=== PATIENT | female | born 1965 | race Caucasian/White ===

== ENCOUNTER 2018-01-06 18:22 | Emergency (ER) | payer OTHER, SELFPAY ==
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
== END 2018-01-06 19:45 | disposition home or self-care (01) ==
LOC: ERS 18:22
DX: S80.212A Abrasion, left knee, initial encounter (principal); S60.416A Abrasion of right little finger, initial encounter; V89.2XXA Person injured in unspecified motor-vehicle accident, traffic, initial encounter

== ENCOUNTER 2019-10-06 11:50 | Inpatient (IN) | payer BC ==
--- NOTE | 2019-10-06 12:15 | RAD ---
PORTABLE CHEST 1 VIEW: Date: 10/06/2019 Time: 1210 hours HISTORY: Chest pain. COMPARISON: 02/14/2018. FINDINGS: Left-sided pacemaker is present. The heart size is normal. The lungs are well expanded without lobar consolidation, pneumothoraces, or pleural effusions. IMPRESSION: No acute process. POS: KARRI
[2019-10-06 12:27] LABS: #Basophils 0.1 thou/uL (0.0-0.2); #Eosinphils 0.3 thou/uL (0.0-0.7); #Lymphocytes 2.3 thou/uL (1.20-3.40); #Monocytes 0.5 thou/uL (0.11-0.59); #Neutrophils 5.4 thou/uL (1.40-6.50); %Basophils 0.9 % (0.0-1.0); %Eosinophils 3.6 % (0.0-10.0); %Lymphocytes 26.4 % (21.0-51.0); %Monocytes 6.4 % (0.0-10.0); %Neutrophils 62.7 % (42.0-75.0); Hemoglobin 14.5 g/dL (12.0-16.0); Mean Corpuscular HGB CONC 34.5 g/dL (32.0-36.0); Mean Corpuscular Hemoglobin 32.2 pg (27.0-31.0); Mean Corpuscular Volume 93.3 fL (78.0-98.0); Mean Platelet Volume 8.2 fL (7.4-10.4); Platelet Count 220 thou/uL (130-400); RBC Distribution Width 12.3 % (11.5-14.5); Red Blood Cell (RBC) Count 4.52 mill/uL (4.20-5.40); White Blood Cell (WBC) Count 8.5 thou/uL (4.8-10.8)
[2019-10-06 12:53] LABS: ALT (SGPT) 20 U/L (8-55); AST (SGOT) 24 U/L (5-34); Albumin 4.8 g/dL (3.5-5.0); Alkaline Phosphatase 103 U/L (40-110); Anion Gap 14 mmol/L (10-20); BUN (Urea Nitrogen) 19 mg/dL (9.8-20.1); Bilirubin, Total 1.6 mg/dL (0.2-1.2); CK (CPK) 33 U/L (29-168); Calc. Creatinine Clearance 0 mL/min (70-130); Calcium 10.9 mg/dL (7.8-10.44); Carbon Dioxide 27 mmol/L (22-29); Chloride 104 mmol/L (98-107); Estimated GFR-MDRD 60; Globulin 3.3 g/dL (2.4-3.5); Glucose 126 mg/dL (70-105); Potassium 4.6 mmol/L (3.5-5.1); Protein, Total 8.1 g/dL (6.0-8.3); Sodium 140 mmol/L (136-145)
[2019-10-06 18:24] LABS: Troponin I Less than 0.010 ng/mL (< 0.028)
[2019-10-06] MEDS ORDERED: Acetaminophen 325 MG TAB PO PRN (19:19)
[2019-10-06] MEDS ORDERED: hydrALAZINE 20 MG/ML VIAL SLOW IVP PRN (19:19)
[2019-10-06] MEDS ORDERED: Ondansetron ODT 4 MG TAB PO PRN (19:19)
[2019-10-06] MEDS ORDERED: Ondansetron PF 4 MG/2 ML Vial IVP PRN (19:19)
[2019-10-06] MEDS ORDERED: hydrALAZINE 25 MG TAB PO PRN (19:19)
--- NOTE | 2019-10-06 22:20 | HP ---
PRIMARY CARE PHYSICIAN: Ray Hurt MD CHIEF COMPLAINT: I feel a weird sensation in my chest. HISTORY OF PRESENT ILLNESS: Ms. 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 She says that she has a defibrillator in place and she recently had a repair of a lead fracture. She was doing okay and then had a followup appointment and says that prior to that her defibrillator has an alarm. It was making some strange sound. She says that the alarm was warning them that there could be some type of problem with one of the leads and she made an appointment for this coming Tuesday in response to that. However, this morning she says that she started feeling a rhythmic sensation in her chest that she really could not describe. She thought it might have been palpitations and it did not necessarily hurt, but every time it happened, it would take her breath away and for this reason, she decided to come to the ER for evaluation. When she was evaluated in the ER, they called [employer] and said that she was actually receiving "shocks" and was instructed that they may have to potentially turn the defibrillator off in order to keep it from shocking her and she is being admitted for further evaluation. Otherwise, she denies any other symptoms such as nausea or vomiting. No fevers. No chills. No cough. No congestion. No abdominal pain. No leg pain. No leg swelling. REVIEW OF SYSTEMS: All systems are reviewed and are negative except for that mentioned in the history of present illness. PAST MEDICAL HISTORY: Significant for viral cardiomyopathy, hypertension, obesity, and hyperlipidemia. PAST SURGICAL HISTORY: She has had a tonsillectomy, cholecystectomy. She has had a defibrillator placed, then has had a generator change and then she has had 2 lead revisions, the most recent being about 3 weeks ago. ALLERGIES: TO PREDNISONE. SOCIAL HISTORY: She is a nonsmoker and nondrinker. She is , has one child. 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 FAMILY HISTORY: History of coronary artery disease. MEDICATIONS: Include: 1. [place]-3 acids 2000 mg daily. 2. Loratadine 10 mg daily. 3. Biotin 1000 mcg p.o. daily. 4. Multivitamin one a day. 5. Potassium 99 mg daily. 6. Melatonin 10 mg daily. 7. Levocetirizine 5 mg daily. 8. Entresto 49/51 mg one tablet twice daily. 9. Crestor 10 mg daily. 10. Carvedilol 12.5 mg in the a.m. and 25 mg q.p.m. PHYSICAL EXAMINATION: GENERAL: She is alert and oriented. She appears to be in no acute distress. She is well developed and well nourished. VITAL SIGNS: Blood pressure was about 118/80, heart rate in the 70s, respiratory rate of 16. She is afebrile. HEENT: Pupils are equal, round, and reactive. Extraocular muscles are intact. Her sclerae are anicteric. NECK: There is no adenopathy. No bruits. LUNGS: Clear. There is no wheezing. No rales. No rhonchi. CARDIOVASCULAR: She has a normal S1 and S2. I did not appreciate an S3 or S4. No murmurs, clicks, or rubs. ABDOMEN: Obese, soft, nontender, and nondistended. Positive for bowel sounds. No rebound. No guarding. No organomegaly. EXTREMITIES: There is no clubbing or cyanosis. No edema. No calf tenderness. No joint effusions. NEUROLOGIC: Grossly nonfocal. SKIN AND INTEGUMENT: No skin changes. No rash. LABORATORY RESULTS: White blood cell count is 8.5, hemoglobin 14.5, hematocrit is 42.1, and platelet count is 220. Sodium 140, potassium 4.6, chloride is 106, CO2 is 27, BUN of 19, creatinine 0.98, glucose is 126, calcium 10.9, total bilirubin 1.6. On her EKG, it was sinus rhythm. There was some Q waves in II, III and aVF as well as poor R wave progression between V1 and V4 and that EKG is by my reading. Her chest x-ray by my reading shows some cardiomegaly, increased pulmonary vascular markings in my opinion. ASSESSMENT: This is a pleasant 54-year-old female, who is being admitted for defibrillator malfunction. She will be placed in observation on telemetry. The defibrillator has been disabled with the magnet. We will monitor her on telemetry and consult EP with Dr. Lipscomb for evaluation. She may need lead revision once again. 1. Hypertension. We will continue her usual medications. 2. Chronic systolic heart failure. This appears to be clinically compensated. Again restart home medicines. Job ID: [id number]
[2019-10-07 04:27] LABS: #Basophils 0.1 thou/uL (0.0-0.2); #Eosinphils 0.3 thou/uL (0.0-0.7); #Lymphocytes 2.5 thou/uL (1.20-3.40); #Monocytes 0.8 thou/uL (0.11-0.59); #Neutrophils 5.7 thou/uL (1.40-6.50); %Basophils 1.2 % (0.0-1.0); %Eosinophils 3.3 % (0.0-10.0); %Lymphocytes 26.5 % (21.0-51.0); %Monocytes 8.7 % (0.0-10.0); %Neutrophils 60.3 % (42.0-75.0); Hemoglobin 14.3 g/dL (12.0-16.0); Mean Corpuscular HGB CONC 35.8 g/dL (32.0-36.0); Mean Corpuscular Hemoglobin 33.6 pg (27.0-31.0); Mean Corpuscular Volume 93.9 fL (78.0-98.0); Platelet Count 184 thou/uL (130-400); RBC Distribution Width 12.3 % (11.5-14.5); Red Blood Cell (RBC) Count 4.25 mill/uL (4.20-5.40); White Blood Cell (WBC) Count 9.4 thou/uL (4.8-10.8)
[2019-10-07 04:51] LABS: Anion Gap 14 mmol/L (10-20); BUN (Urea Nitrogen) 17 mg/dL (9.8-20.1); Calc. Creatinine Clearance 136 mL/min (70-130); Calcium 10.1 mg/dL (7.8-10.44); Carbon Dioxide 25 mmol/L (22-29); Chloride 105 mmol/L (98-107); Estimated GFR-MDRD 61; Glucose 114 mg/dL (70-105); Potassium 4.2 mmol/L (3.5-5.1); Sodium 140 mmol/L (136-145)
[2019-10-07] MEDS: Fish Oil 1,000 MG CAP PO SCH (08:56)
[2019-10-07] MEDS: Multivitamin W/ Minerals 1 TAB PO SCH (08:57)
[2019-10-07] MEDS: Carvedilol 6.25 MG TAB PO SCH (08:57)
[2019-10-07] MEDS: Rosuvastatin 10 MG TAB PO SCH (08:57)
[2019-10-07] MEDS: Sacubitril 49 MG/Valsartan 51 MG TABLET PO SCH ×2 (08:57→20:57)
[2019-10-07] MEDS ORDERED: BOR PO SCH (09:00)
[2019-10-07] MEDS ORDERED: COLLAGEN PO SCH (09:00)
[2019-10-07] MEDS ORDERED: CARTILAGE PO SCH (09:00)
[2019-10-07] MEDS ORDERED: Non-Formulary Item 1 EACH (Biotin [Biotin] 10,000 MCG) PO SCH (09:00)
[2019-10-07] MEDS ORDERED: HYALUR PO SCH (09:00)
[2019-10-07] MEDS ORDERED: Loratadine 10 MG TAB PO SCH ×2 (09:00)
[2019-10-07] MEDS: Enoxaparin Sodium 40 MG/0.4 ML SYRINGE SC SCH (09:01)
--- NOTE | 2019-10-07 17:27 | PDOC.HOSPP ---
- Subjective Encounter Date: 10/07/19 Encounter Time: 17:25 Subjective: Ms. Finney was seen today in follow-up of defibrillator lead fracture. She does not have any complaints today. - Objective Vital Signs & Weight: Vital Signs (12 hours) Temp Pulse Resp BP BP Pulse Ox 10/07/19 16:57 98.2 F 72 15 121/71 96 10/07/19 11:13 97.9 F 82 14 110/70 94 L 10/07/19 08:57 121/71 10/07/19 06:54 98.2 F 80 14 121/71 94 L Weight Weight 278 lb 1 oz I&O: 10/06/19 10/07/19 10/08/19 06:59 06:59 06:59 Intake Total 1020 Balance 1020 Result Diagrams: 10/07/19 03:55 10/07/19 03:55 Hospitalist ROS - Medication Medications: Active Medications Generic Name Dose Route Start Last Admin Trade Name Freq PRN Reason Stop Dose Admin Carvedilol 12.5 mg 10/07/19 09:00 10/07/19 08:57 Coreg PO 12.5 mg DAILY SANJAY Administration Enoxaparin Sodium 40 mg 10/07/19 09:00 10/07/19 09:01 Lovenox SC 40 mg 0900 SANJAY Administration Fish Oil 2,000 mg 10/07/19 09:00 10/07/19 08:56 Fish Oil PO 2,000 mg DAILY SANJAY Administration Iron/Minerals/Multivitamins 1 tab 10/07/19 09:00 10/07/19 08:57 Theragran M PO 1 tab DAILY SANJAY Administration Rosuvastatin Calcium 10 mg 10/07/19 09:00 10/07/19 08:57 Crestor PO 10 mg DAILY SANJAY Administration Sacubitril/Valsartan 1 tab 10/07/19 09:00 10/07/19 08:57 Entresto 49 Mg-51 Mg Tablet PO 1 tab BID SANJAY Administration - Exam Eye: PERRL, anicteric sclera Heart: RRR, no murmur, no gallops, no rubs, normal peripheral pulses Respiratory: CTAB, no wheezes, no rales, no ronchi, normal chest expansion Gastrointestinal: soft, non-tender, non-distended, normal bowel sounds, no palpable masses, no hepatomegaly Extremities: no cyanosis, no edema Hosp A/P (1) Implanted defibrillator electrode lead fracture Code(s): T82.190A - [facility] COMPL OF CARDIAC ELECTRODE, INITIAL ENCOUNTER Status : Acute (2) Cardiomyopathy, nonischemic Code(s): I42.8 - OTHER CARDIOMYOPATHIES Status: Chronic (3) Hypertension Code(s): I10 - ESSENTIAL (PRIMARY) HYPERTENSION Status: Chronic (4) Morbid obesity with BMI of 45.0-49.9, adult Code(s): E66.01 - MORBID (SEVERE) OBESITY DUE TO EXCESS CALORIES; Z68.42 - BODY MASS INDEX (BMI) 45.0-49.9, ADULT Status: Chronic - Plan * Defibrillator lead fracture- Await EP evaluation * HTN- blood pressure is stable- reconcile, and re-start home medications * CHF- chronic systolic heart failure due to non-ischemic cardiomyopathy- compensated
[2019-10-07] MEDS: Carvedilol 25 MG TAB PO SCH (20:57)
[2019-10-07] MEDS: Melatonin 3 MG TAB PO SCH (20:57)
[2019-10-07] MEDS ORDERED: Non-Formulary Item 1 EACH (Carvedilol [Coreg] 12.5 MG) PO SCH (21:00)
[2019-10-08] MEDS: Enoxaparin Sodium 40 MG/0.4 ML SYRINGE SC SCH (08:35)
[2019-10-08] MEDS: Loratadine 10 MG TAB PO SCH (08:36)
[2019-10-08] MEDS: Fish Oil 1,000 MG CAP PO SCH (08:36)
[2019-10-08] MEDS: Carvedilol 6.25 MG TAB PO SCH (08:36)
[2019-10-08] MEDS: Sacubitril 49 MG/Valsartan 51 MG TABLET PO SCH ×2 (08:36→20:40)
[2019-10-08] MEDS: Rosuvastatin 10 MG TAB PO SCH (08:36)
[2019-10-08] MEDS: Multivitamin W/ Minerals 1 TAB PO SCH (08:36)
--- NOTE | 2019-10-08 10:54 | PDOC.HOSPP ---
- Subjective Encounter Date: 10/08/19 Encounter Time: 10:53 Subjective: Ms. Finney was seen today in follow-up of defibrillator lead fracture. She noted that after she got up and moved around some yesterday evening, she began to notice the sensation in her chest again. - Objective Vital Signs & Weight: Vital Signs (12 hours) Temp Pulse Resp BP Pulse Ox 10/08/19 07:20 97.6 F 76 17 119/71 94 L 10/08/19 03:19 97.7 F 67 16 105/61 94 L 10/08/19 00:34 96 10/08/19 00:10 70 Weight Weight 280 lb 14.4 oz I&O: 10/07/19 10/08/19 10/09/19 06:59 06:59 06:59 Intake Total 1020 2120 Output Total 3025 Balance 1020 -905 Result Diagrams: 10/07/19 03:55 10/07/19 03:55 Hospitalist ROS - Medication Medications: Active Medications Generic Name Dose Route Start Last Admin Trade Name Cali PRN Reason Stop Dose Admin Carvedilol 25 mg 10/07/19 21:00 10/07/19 20:57 Coreg PO 25 mg HS SANJAY Administration Carvedilol 12.5 mg 10/07/19 09:00 10/08/19 08:36 Coreg PO 12.5 mg DAILY SANJAY Administration Enoxaparin Sodium 40 mg 10/07/19 09:00 10/08/19 08:35 Lovenox SC Not Given 0900 SANJAY Fish Oil 2,000 mg 10/07/19 09:00 10/08/19 08:36 Fish Oil PO 2,000 mg DAILY SANJAY Administration Iron/Minerals/Multivitamins 1 tab 10/07/19 09:00 10/08/19 08:36 Theragran M PO 1 tab DAILY SANJAY Administration Loratadine 10 mg 10/08/19 09:00 10/08/19 08:36 Claritin PO 10 mg DAILY SANJAY Administration Melatonin 9 mg 10/07/19 21:00 10/07/19 20:57 Melatonin PO 9 mg HS SANJAY Administration Rosuvastatin Calcium 10 mg 10/07/19 09:00 10/08/19 08:36 Crestor PO 10 mg DAILY SANJAY Administration Sacubitril/Valsartan 1 tab 10/07/19 09:00 10/08/19 08:36 Entresto 49 Mg-51 Mg Tablet PO 1 tab BID SANJAY Administration - Exam Eye: PERRL Heart: RRR, no murmur, no gallops, no rubs, normal peripheral pulses Respiratory: CTAB, no wheezes Gastrointestinal: soft, non-tender, non-distended, normal bowel sounds, no palpable masses, no hepatomegaly Extremities: no cyanosis, no edema Hosp A/P (1) Implanted defibrillator electrode lead fracture Code(s): T82.190A - [facility] COMPL OF CARDIAC ELECTRODE, INITIAL ENCOUNTER Status : Acute (2) Cardiomyopathy, nonischemic Code(s): I42.8 - OTHER CARDIOMYOPATHIES Status: Chronic (3) Hypertension Code(s): I10 - ESSENTIAL (PRIMARY) HYPERTENSION Status: Chronic (4) Morbid obesity with BMI of 45.0-49.9, adult Code(s): E66.01 - MORBID (SEVERE) OBESITY DUE TO EXCESS CALORIES; Z68.42 - BODY MASS INDEX (BMI) 45.0-49.9, ADULT Status: Chronic - Plan * Defibrillator lead fracture-EP evaluation in progress * HTN- blood pressure is stable- reconcile, and re-start home medications * CHF- chronic systolic heart failure due to non-ischemic cardiomyopathy- compensated
[2019-10-08 13:37] VITALS: BMI 46.7
[2019-10-08] MEDS ORDERED: Iopamidol 370 76% 50 ML VIAL FS ONE (13:37)
[2019-10-08] MEDS ORDERED: CEFAZOLIN 1 GM VIAL ONE (15:04)
[2019-10-08] MEDS ORDERED: Gentamicin 80 MG/2 ML VIAL ONE (15:04)
[2019-10-08] MEDS ORDERED: Midazolam HCl 2 mg/2 ml Vial ONE (15:05)
[2019-10-08] MEDS ORDERED: Ketamine 50 MG/ML (10ML VIAL) ONE (15:05)
[2019-10-08] MEDS ORDERED: Propofol 500 MG/50 ML VIAL ONE ×2 (15:05→16:29)
[2019-10-08] MEDS ORDERED: Fentanyl 100 MCG/2 ML VIAL ONE ×2 (15:05→17:34)
[2019-10-08] MEDS ORDERED: Phenylephrine 10 MG/ML VIAL ONE (15:41)
[2019-10-08] MEDS ORDERED: Ondansetron HCl/PF 4 MG/2 ML Vial IVP PRN (16:47)
[2019-10-08] MEDS ORDERED: Promethazine HCl 25 MG/ML VIAL SLOW IVP PRN (16:47)
[2019-10-08] MEDS ORDERED: Promethazine HCl 25 MG/ML VIAL IM PRN (16:47)
[2019-10-08] MEDS ORDERED: PACU-Morphine 4MG/ML VIAL SLOW IVP PRN (16:47)
[2019-10-08] MEDS ORDERED: HYDROmorphone 2 MG/ML VIAL SLOW IVP PRN (16:47)
[2019-10-08] MEDS ORDERED: traMADol HCl 50 MG TAB PO PRN (20:18)
[2019-10-08] MEDS: Carvedilol 25 MG TAB PO SCH (20:40)
[2019-10-08] MEDS: Melatonin 3 MG TAB PO SCH (20:40)
[2019-10-08] MEDS: CEFAZOLIN 2 GM in Premix Bag 1 BAG IVPB SCH (23:27)
--- NOTE | 2019-10-09 07:05 | CON ---
DATE OF CONSULTATION: 10/08/2019 ADDITIONAL REFERRING PHYSICIAN: Bryan Hebert MD. 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 Her problems are: 1. RA and RV lead malfunction likely retraction. 2. History of chronic systolic congestive heart failure with nonischemic cardiomyopathy. a. LVEF on 11/16/2018 reveals LVEF 45% to 50%. b. Dual-chamber ICD in place, urgent implantation in 2012 with subsequent lead revision. Atrial lead malfunction noted over the years and due to suboptimal defibrillation thresholds and poor atrial sensing, she underwent a lead extraction and device reimplantation by Dr. Chatterjee in August 2019. 3. Now presenting with retracted atrial leads of the freshly implanted device. 4. Morbid obesity. 5. Hypertension. 6. Dyslipidemia. ALLERGIES: NONE. MEDICATIONS: At home included: 1. Melatonin. 2. Multivitamin. 3. Claritin. 4. [place]-3 fatty acid. 5. Biotin. 6. Tylenol. 7. Xyzal 2.5 tablet. 8. Coreg 25 mg p.o. q.a.m. and 12.5 mg p.o. q.p.m. 9. Entresto 49/51 mg one tablet twice a day. 10. Crestor. SUBJECTIVE: Mrs. Finney has been experiencing hiccup like sensations overnight, came to the ER, and she was found to have her ICD lead malfunction. Chest x-ray revealing retracted atrial and somewhat retracted ventricular lead. She already has had signs of RV lead malfunction over her [employer] remote monitoring transmission, and was warned about potential issues. Likely, she had not had any mis-sensing of ventricular signals, and no inappropriate shocks were delivered. She also has no appropriate ventricular tachycardia recently. Respiratory system otherwise unremarkable with no current angina, CHF. No fever, chills. No wound healing issues from recent ICD revision. PAST MEDICAL HISTORY: As above. SOCIAL HISTORY: The patient denies smoking, EtOH, or drug abuse. FAMILY HISTORY: Not contributory. OBJECTIVE DATA: VITAL SIGNS: Blood pressure is 105/64, heart rate 68, respiratory rate is 12, temperature 97.9 degrees Fahrenheit. GENERAL: Reveals an alert and oriented, morbidly obese woman, in no apparent distress. NECK: Supple. Jugular veins not distended. CHEST: Coarse without crackles. CARDIOVASCULAR: Heart sounds are regular to rate and rhythm. No murmur or gallop. ABDOMEN: Benign. Bowel sounds positive. EXTREMITIES: Lower extremity without edema, clubbing, or cyanosis. Pulses are adequate. NEUROLOGIC: The patient is nonfocal. MUSCULOSKELETAL: Without joint swelling or deformity. SKIN: Without rash. DATABASE: Chest x-rays reviewed revealing retracted atrial lead into the SVC and the RV lead has lost significant amount of slack. LABORATORY DATA: White cell count 9.4, hemoglobin 14.3, platelet count 184. Sodium 140, potassium 4.2, BUN is 17, creatinine is 0.96. The EKG reviewed, revealing sinus rhythm, narrow QRS AV conduction, QTc 436 milliseconds. The interrogation of device reveals a [employer] Evera XT MRI compatible dual-chamber ICD but longevity is still at the beginning of life. The lead parameters are revealing impedance 551 ohms in atrium and 722 ohms in RV, but impedance trends revealing increasing RV bipolar impedance, . Nonsustained VT episodes were documented. The atrial territories are not captured. ASSESSMENT AND PLAN: Mrs. Finney is a 54-year-old woman with history of nonischemic cardiomyopathy, dual-chamber ICD implantation in 2012 with subsequent lead issues requiring eventually a lead revision in August [address] [place] [address] Chatterjee. The patient now presents with evident diaphragmatic pacing likely from the retracted atrial lead, also suboptimal RV impedances are seen with severe lack of slack which suggest micro/macro dislodgement of the RV lead. I reviewed these findings with her. I think likely her body habitus makes her lead system very mobile and also some degree of twiddling also could be present. I discussed the plans with her. I think it is reasonable to attempt revision of leads, likely replacement with new steroid-eluting fresh lead. Subclavian venogram will be performed prior to that. I discussed the risks and benefits including infection, bleeding, likely will use Tyrx pouch for minimizing chance of infection. We also discussed chance of infection, bleeding, pneumothorax, tamponade, lead dislodgement as well in the future. She understands, willing to proceed. We will schedule her immediately. Thank you again for allowing me to participate in the care of your patient. Job ID: [id number]
[2019-10-09 07:35] VITALS: BP 134/73; TEMP 97.7
[2019-10-09] MEDS: CEFAZOLIN 2 GM in Premix Bag 1 BAG IVPB SCH (08:28)
[2019-10-09] MEDS: Loratadine 10 MG TAB PO SCH (08:29)
[2019-10-09] MEDS: Enoxaparin Sodium 40 MG/0.4 ML SYRINGE SC SCH (08:29)
[2019-10-09] MEDS: Fish Oil 1,000 MG CAP PO SCH (08:29)
[2019-10-09] MEDS: Carvedilol 6.25 MG TAB PO SCH (08:29)
[2019-10-09] MEDS: Multivitamin W/ Minerals 1 TAB PO SCH (08:29)
[2019-10-09] MEDS: Sacubitril 49 MG/Valsartan 51 MG TABLET PO SCH (08:30)
[2019-10-09] MEDS: Rosuvastatin 10 MG TAB PO SCH (08:30)
--- NOTE | 2019-10-09 11:39 | PDOC.EP ---
- Subjective Date: 10/09/19 Time: 08:00 Interval History: Follow-up status post lead revision on 10/08/2019. She is feeling fair been having some moderate amount of discomfort at the incision site. P.r.n. Toradol as ordered which has been effective for her in the past. no recurrent hiccuping sensation she voices no additional concerns or complaints from a device, arrhythmia, or cardiac perspective - Review of Systems Constitutional: denies: chills, sweats, weakness Respiratory: denies: cough, shortness of breath, wheezing Cardiology: denies: chest pain, edema, heart racing, light headedness, palpitations, passing out Gastrointestinal: denies: abdominal pain, constipation, nausea, vomitting Musculoskeletal: denies: unstable gait, falls, leg pain - Objective Allergies/Adverse Reactions: Allergies Allergy/AdvReac Type Severity Reaction Status Date / Time prednisone Allergy Unknown Verified 10/06/19 16:33 Vital Signs & Weight: Vital Signs Temp Pulse Resp BP Pulse Ox 10/09/19 07:15 97.7 F 77 19 134/73 96 10/09/19 04:00 97.4 F L 69 18 111/70 95 10/09/19 00:15 67 98/59 L Admit Weight 277 lb Weight 280 lb 6.4 oz I/O: I/O 10/08/19 10/09/19 10/10/19 06:59 06:59 06:59 Intake Total 2120 1040 Output Total 3025 2150 Balance -905 -1110 - Quality Measures Condition: Atrial Fibrillation/Flutter (hx or current) - Physical Exam General: alert & oriented x3, appears well, speech clear HEENT: mucus membranes moist, normocephaly, EOMI Neck: supple neck, midline trachea, no lymphadenopathy Cardiology: regular rate and rhythm, PMI nondisplaced Lungs: clear to auscultation, normal breath sounds, no wheeze, rales, rhonchi Neurology: cranial nerve 2-12 intact, grossly intact, no lateralizing findings Abdomen: unremarkable, active bowel sounds, no pulsations/bruits, HJR negative Extremities: dry, strong pulses, warm Skin: left sided device, swelling. negative: drainage, erosion, hematoma - Labs Result Diagrams: 10/07/19 03:55 10/07/19 03:55 - EKG Interpretation EKG shows: Sinus rhythm - Device Device: dual, defibrillator Device Result: [employer] - Assessment/Plan Assessment/Plan: 1. dual-chamber ICD 2. history of chronic systolic congestive heart failure with nonischemic cardiomyopathy. no evidence of exacerbation or issues hospitalizationR3. Morbid obesity. 3. Hypertension. 4. Morbid obesity 5. Dyslipidemia. status post lead extraction and reimplant 10/08/2019 due to both leads being retracted. Her habitus makes lead retraction more likely. Additional sutures to hold the generator down were placed. Device was placed in an antimicrobial pouch to prevent twisting. Additional slack was left in the leads to prevent tension. Discussed what maneuvers to avoid to prevent further dislodgement and wearing a supportive bra would also be beneficial. Will see her back for a 2 week wound check. Continue Keflex x7 days post implant is ordered. Request that she be discharged with a small supply of Toradol for post implant pain management.#10 should be adequate. she may contact our office with any post device implant concerns in the interim. Post implant device check this AM shows normal/stable device function. CXR not yet done.
[2019-10-09] MEDS ORDERED: Cephalexin 250 MG CAP PO SCH (12:00)
--- NOTE | 2019-10-10 02:18 | DIS ---
DATE OF ADMISSION: 10/06/2019 DATE OF DISCHARGE: 10/09/2019 DISCHARGE DISPOSITION: Home. DISCHARGE DIAGNOSES: 1. Defibrillator lead fracture. 2. Nonischemic cardiomyopathy. 3. Morbid obesity. The patient has a BMI of 46. 4. Hypertension. 5. Hyperlipidemia. DISCHARGE MEDICATIONS: Include: 1. Keflex 500 mg q.i.d. for 7 days. 2. Entresto 49/51 one tablet twice daily. 3. Crestor 10 mg daily. 4. [place]-3 fatty acids 2000 mg daily. 5. Multivitamin two tablets daily. 6. Melatonin 10 mg at bedtime. 7. Claritin 10 mg daily. 8. Levocetirizine 5 mg daily. 9. Carvedilol 12.5 mg q.a.m. and 25 mg at bedtime. 10. Biotin 32901 mcg daily. 11. Tylenol 325 mg as needed. The patient had procedures done. The patient had replacement and repair of the fractured leads. CODE STATUS: Full code. ALLERGIES: TO PREDNISONE. HOSPITAL COURSE: Ms. Finney is a pleasant 54-year-old female, who was admitted to the hospital after she developed a repeat lead fracture. She was having symptoms of a pacing sensation and some shortness of breath associated with this. She came to the emergency room, where she was placed in observation. She was seen by EP and underwent repair of the device. She tolerated the procedure well and is being discharged home on Keflex for antibiotic prophylaxis. She is to follow up with her primary care physician as instructed and also with Dr. Lipscomb as instructed. Job ID: [id number]
== END 2019-10-09 10:13 | disposition home or self-care (01) | DRG 265 ==
LOC: ERS 11:50 → 2NO 16:11 → OBSVTOIN 16:11
PROVIDERS: ADMIT Internal Medicine; ATTEND Internal Medicine
PROC: 4B02XTZ Measurement of Cardiac Defibrillator, External Approach (ICD-10-PCS; 2019-10-06)
PROC: 02H63KZ Insertion of Defibrillator Lead into Right Atrium, Percutaneous Approach (ICD-10-PCS; principal; 2019-10-08)
PROC: 02PA3MZ Removal of Cardiac Lead from Heart, Percutaneous Approach (ICD-10-PCS; 2019-10-08)
PROC: 02HK3KZ Insertion of Defibrillator Lead into Right Ventricle, Percutaneous Approach (ICD-10-PCS; 2019-10-08)
DX: T82.120A Displacement of cardiac electrode, initial encounter (principal); I42.8 Other cardiomyopathies; Z68.42 Body mass index [BMI] 45.0-49.9, adult; I50.22 Chronic systolic (congestive) heart failure; E66.01 Morbid (severe) obesity due to excess calories; E78.5 Hyperlipidemia, unspecified; I11.0 Hypertensive heart disease with heart failure; Y83.1 Surgical operation with implant of artificial internal device as the cause of abnormal reaction of the patient, or of later complication, without mention of misadventure at the time of the procedure; Z90.79 Acquired absence of other genital organ(s); Z88.8 Allergy status to other drugs, medicaments and biological substances; Z79.899 Other long term (current) drug therapy
CPT/HCPCS: 33217; 36005; 36415; 71045; 75820; 76942; 80048; 80053; 82550; 83735; 84484; 85025; 93005; 94760; J0690; J1580; J1650; J2250; J2370; J2704; J3010; Q9967

== ENCOUNTER 2022-11-22 12:02 | Outpatient (CLI) | payer BC | END 2022-11-22 12:03 | disposition home or self-care (01) | LOC: BICMAMMO 12:02 | PROVIDERS: ATTEND Nurse Practitioner Family | DX: Z12.31 Encounter for screening mammogram for malignant neoplasm of breast (principal) | CPT/HCPCS: 77063; 77067 ==

== ENCOUNTER 2023-02-15 05:42 | Day surgery (SDC) | payer BC ==
[2023-02-14 09:14] VITALS: BMI 42.6
== END 2023-02-15 08:57 | disposition home or self-care (01) ==
LOC: SDC 05:42
PROVIDERS: ATTEND Internal Medicine Gastroenterology
PROC: 0DBL8ZZ Excision of Transverse Colon, Via Natural or Artificial Opening Endoscopic (ICD-10-PCS; principal; 2023-02-15)
DX: Z12.11 Encounter for screening for malignant neoplasm of colon (principal); D12.3 Benign neoplasm of transverse colon; K57.30 Diverticulosis of large intestine without perforation or abscess without bleeding; I11.0 Hypertensive heart disease with heart failure; I50.9 Heart failure, unspecified; E11.9 Type 2 diabetes mellitus without complications; E78.2 Mixed hyperlipidemia; Z90.89 Acquired absence of other organs; Z95.810 Presence of automatic (implantable) cardiac defibrillator; Z90.49 Acquired absence of other specified parts of digestive tract; Z79.84 Long term (current) use of oral hypoglycemic drugs; Z79.85 Long-term (current) use of injectable non-insulin antidiabetic drugs; Z79.899 Other long term (current) drug therapy
CPT/HCPCS: 88305

== ENCOUNTER 2024-01-24 15:12 | Outpatient (CLI) | payer BC | END 2024-01-24 15:13 | disposition home or self-care (01) | LOC: BICMAMMO 15:12 | PROVIDERS: ATTEND Nurse Practitioner Family | DX: Z12.31 Encounter for screening mammogram for malignant neoplasm of breast (principal) | CPT/HCPCS: 77063; 77067 ==